=== PATIENT | male | born 1955 | race Caucasian/White ===

== ENCOUNTER → 2025-01-01 | Day surgery (SDC) | payer MEDICARE, OTHER ==
[2024-12-27 11:11] LABS: BASOPHILS % 1.0 % (0.0-1.0); EOSINOPHILS % 3.9 % (0.0-6.0); LYMPHOCYTES % 21.4 % (18.0-39.1); MONOCYTES % 13.4 % (4.4-11.3); NEUTROPHILS % 59.8 % (38.7-80.0); RED CELL DISTRIBUTION WIDTH 13.4 % (11.7-14.4)
[~2025-01-01] MED LIST: AMLODIPINE BESY10 MG PO; FISH OIL 1,0001 EAC7; LIDOCAINE HCL 2% LOCAL INJ 5 ML SDV VIAL INJ ONE; PRILOSEC OTC20 MG; PROPOFOL IV EMULSION 10 MG/ML 20 ML VIAL ONE
[2025-01-01] MEDS: LACTATED RINGER'S 1,000 ML ONE (07:42)
[2025-01-01 09:30] VITALS: TEMP 98
[2025-01-01 10:00] VITALS: BP 117/77; PULSE 72; RESP 18; O2SAT 98
== END | disposition home or self-care (01) ==
LOC: OR 06:46
PROVIDERS: ATTEND Internal Medicine Gastroenterology
DX: Z12.11 Encounter for screening for malignant neoplasm of colon (principal); K31.7 Polyp of stomach and duodenum; K29.50 Unspecified chronic gastritis without bleeding; K57.30 Diverticulosis of large intestine without perforation or abscess without bleeding; K21.9 Gastro-esophageal reflux disease without esophagitis; K44.9 Diaphragmatic hernia without obstruction or gangrene; K59.00 Constipation, unspecified; K62.5 Hemorrhage of anus and rectum; K64.4 Residual hemorrhoidal skin tags; K64.1 Second degree hemorrhoids; I10 Essential (primary) hypertension; I45.10 Unspecified right bundle-branch block; M06.9 Rheumatoid arthritis, unspecified; M19.90 Unspecified osteoarthritis, unspecified site; Z01.810 Encounter for preprocedural cardiovascular examination; Z01.812 Encounter for preprocedural laboratory examination; Z79.899 Other long term (current) drug therapy; Z87.891 Personal history of nicotine dependence
CPT/HCPCS: 36415; 43239; 43251; 45380; 45381; 85025; 88305; 93005; J2003